=== PATIENT | female | born 1980 | race Caucasian/White ===

== ENCOUNTER 2017-01-02 18:17 | Emergency (ER) | payer MEDICARE, OTHER ==
[2017-01-02 19:02] LABS: HEMOGLOBIN 12.6 gm/dl (12.3-15.3); RED BLOOD COUNT 4.41 M/UL (4.00-5.10); WHITE BLOOD COUNT 11.5 K/UL (4.5-11.0)
== END 2017-01-02 21:38 | disposition short-term general hospital (02) ==
LOC: ER1 18:17
PROVIDERS: Emergency Medicine
DX: E11.628 Type 2 diabetes mellitus with other skin complications (principal); L03.116 Cellulitis of left lower limb; E66.01 Morbid (severe) obesity due to excess calories; Z88.0 Allergy status to penicillin; Z88.2 Allergy status to sulfonamides
CPT/HCPCS: 36415; 71010; 73560; 73590; 80053; 83605; 84703; 85025; 86140; 87040; 96365; 96375; 99284; J0692; J2270; J2405; J3370; J7030; J7050